=== PATIENT | female | born 1945 | race Asian ===

== ENCOUNTER 2018-09-23 05:52 | Inpatient (IN) | payer OTHER ==
[2018-09-08 09:06] LABS: ABSOLUTE BASOPHILS 0.1 thou/uL (0.0-0.2); ABSOLUTE LYMPHOCYTES 1.8 thou/uL (0.8-5.3); ABSOLUTE MONOCYTES 0.4 thou/uL (0.0-1.2); ABSOLUTE NEUTROPHILS 7.6 thou/uL (1.6-8.1); BASOPHILS 0.8 %; EOSINOPHILS 0.2 %; HEMATOCRIT 39.7 % (37.0-47.0); HEMOGLOBIN 13.4 gm/dL (12.0-15.0); LYMPHOCYTES 17.8 %; MCH 28.1 pg (26.0-34.0); MCHC 33.6 g/dL (28.0-37.0); MCV 83.4 fL (80.0-100.0); MONOCYTES 4.4 %; MPV 8.5 fl. (7.2-11.1); NUCLEATED RBCS 0 /100WBC; PLATELET COUNT* 310 thou/uL (150-400); POLYS 76.8 %; RBC 4.76 mil/uL (4.20-5.00); RDW-CV 14.4 % (10.5-14.5); WBC 9.9 thou/uL (4.0-11.0)
[2018-09-08 09:15] LABS: APTT 26.9 Seconds (25.0-31.3); PROTIME 10.1 Seconds (9.20-11.50)
[2018-09-08 09:21] LABS: ALBUMIN 3.5 g/dL (3.4-5.0); CALCIUM 9.7 mg/dL (8.5-10.1); CREATININE 0.8 mg/dL (0.6-1.3); POTASSIUM 3.4 mmol/L (3.5-5.1); TOTAL BILIRUBIN 0.3 mg/dL (<0.1-1.0); TOTAL PROTEIN 9.1 g/dL (6.4-8.2)
[2018-09-08 10:07] LABS: ESR (SEDRATE) 30 mm/hr (0-30)
--- NOTE | 2018-09-08 17:06 | EKG ---
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
[~2018-09-23] VITALS: Ht 157.5 cm; Wt 79.4 kg
--- NOTE | ~2018-09-23 | OP ---
[address] [address] OPERATIVE REPORT Name: ROSALIND THOMAS Room: [address] IN M.R.#: [id number] Admission: 09/23/18 Attend Phys: Luca Alatorre Discharge: 09/27/18 Date of : 49 Report #: [id number] THIS REPORT FOR: //name// CC: Jd SONI Physician staff Barney Escobar DICTATED BY: Karl Miller DO DATE OF SERVICE: 09/23/2018 DIAGNOSES: 1. Left knee degenerative joint disease. 2. Rheumatoid arthritis. PROCEDURE: Left total knee arthroplasty. SURGEON: Jd Rust DO TEST ENG: Karl Miller DO SECOND TEST ENG: Morgan Mckinley DO ANESTHESIA: General, local and regional block. ESTIMATED BLOOD LOSS: 100 mL. SPECIMENS: None. DRAINS: None. COMPLICATIONS: None. CONDITION OF PATIENT: Stable to PACU. ORTHOPEDIC IMPLANTS: 1. Deann Persona size 6 left femur. 2. Deann Persona size D left tibia. 3. Deann Persona medial congruent polyethylene insert, 12 mm. 4. Deann Persona 29 mm all poly patella. 5. Two bags of Palacos bone cement. INDICATIONS FOR PROCEDURE: The patient is a pleasant 73-year-old female, who has had severe left knee pain for many years. She also has underlying rheumatoid arthritis. Radiographically, she has complete obliteration of the [facility] [address] [place] [address] OPERATIVE REPORT Name: ROSALIND THOMAS Room: [address] IN M.R.#: [id number] Admission: 09/23/18 Attend Phys: Luca Alatorre Discharge: 09/27/18 Date of : 49 Report #: [id number] joint space in all 3 compartments. She has failed conservative measures, continues to have pain that affect quality of life and inhibit her ability to carry out activities of daily living. It was recommended she be a candidate for left total knee arthroplasty. All risks, benefits, complications, indications and alternatives were reviewed and she wished to proceed. PROCEDURE DESCRIPTION: The patient was brought to the operative suite and placed supine on the operative table where she was given the benefits of general anesthesia. At this time, the left lower extremity was then sterilely prepped and draped in standard fashion. Timeout was taken to ensure correct patient, procedure, operative site, and the antibiotics were given, everybody in the room was in agreeance. At that time, a 20 blade scalpel was used to make an anterior skin incision through skin and subcutaneous tissue. A second 10 blade was used to perform medial parapatellar arthrotomy. Subperiosteal medial tibial sleeve was developed. Patella was everted. There was significant amount of degenerative change present with straw-colored synovial fluid consistent with her underlying diagnosis of rheumatoid arthritis as well as advanced degenerative change. At this time, osteophytes were removed with the rongeur. A drill was used to find intramedullary canal of the femur. A distal femoral cutting guide was placed in intramedullary canal of the femur, a 5-degree valgus cut was made, taken 12 mm resection due to her preoperative 5-degree flexion contracture. Once this resection was made, we then sized the femur to a size 6, pinned the cutting block in place, made anterior cuts followed by posterior cuts followed by our chamfer cuts. At this point, all bony debris was removed with a rongeur and a curved osteotome. We then went on to address the tibia. The extramedullary tibial guide was placed in line with medial third of the tibial tubercle down the tibial crest in line with the middle of the ankle at the appropriate slope. Once the tibial resection was made taking 10 mm off the high side, we then checked with a 10 block spacer and had equal varus valgus balance and adequate space in both in flexion and extension. We then irrigated the knee. We then sized our tibia to a size D, pinned it in place in the appropriate amount of external rotation, a trial of size 6 femur with a 12 mm poly; with this, we had full range of motion, excellent stability both throughout mid flexion as well as with varus valgus stress. We then ____ edge of the patella with a Bovie electrocautery, resurfaced the patella with a saw, drilled 3 peg holes, this was measured at 29 mm. Trial patella was taken through range of motion and found to have excellent patellar tracking. At this time, trial instruments were removed. Peg holes were drilled in the femur. Proximal tibia was drilled and punched. We then pulsatile lavaged the bone ends. Palacos cement was mixed at the back table. We then carried out cementing first with the tibia followed by the femur and patella and allowed the knee to sit in extension with a 12 mm trial insert while cement hardened. Once cement was hard, we irrigated the knee, removed the trial implant as well as any excess cement. We then placed a final 12 mm medial congruent articular insert. This was placed with the implant device and clicked into place. We then irrigated the wound once more, closed the capsule with a #1 Vicryl followed by a [address] [place] [address] OPERATIVE REPORT Name: ROSALIND THOMAS Room: [address]#: [id number] Admission: 09/23/18 Attend Phys: Luca Alatorre Discharge: 09/27/18 Date of : 49 Report #: [id number] running #1 Stratafix, subcutaneous were closed with a 2-0 Monocryl followed by running 3-0 Stratafix and Dermabond glue. Mepilex dressing and VIRGIL hose was applied. The patient awoke from anesthesia and brought to PACU in stable condition. By: [id number] luis Rust DO /mann
[~2018-09-23 05:52] MED LIST: ASPIRIN325 PO; PREDNISONE 5 MG5 MG PO
[2018-09-23 07:00] VITALS: BP 135/86
[2018-09-23 13:47] VITALS: BP 130/87
--- NOTE | 2018-09-23 14:20 | NUR ---
PT ADMITTED TO UNIT WITH LEFT KNEE REPLACEMENT. PT ALERT AND ORIENTED. PT IS ON 2LITERS O2 BY NASAL CANNULA. PULSES 2+ ALL EXTREMITIES. NO KNOWN DRUG ALLERGIES. PT HAS CLEAR LUNGS. BM TODAY, BOWEL SOUNDS ACTIVE. HAS NOT VOIDED POSTN OP AT THIS TIME. POLAR PACK TO KNEE. MEPILEX DRESSING WITHTED HOSE ON BILAT. FOOT SCD IN PLACE. PT WORKING WITH THERAPY TODAY TO SIT ON EDGE OF BED. WALKER AND GAIT BELT IN ROOM. PAIN MEDS GIVEN ORDERED. FALL RISK PRECAUTIONS IN PLACE. WILL CONTINUE TO MONITOR.
[2018-09-23 16:00] VITALS: BP 155/84
--- NOTE | 2018-09-23 16:53 | NUR ---
PT REMAINED ALERT AND ORIENTED. PT WORKED WITH THERAPY AND HAS VOIDED. PT X1 ASSIST TO COMMODE. WITH WALKER AND GAIT BELT. PAIN MEDS GIVEN ORDERED. POLAR PACK IN PLACE. HOURLY ROUNDING COMPLETED. WILL CONTINUE TO MONITOR.
[2018-09-23 19:30] VITALS: BP 131/71
[2018-09-24 00:30] VITALS: BP 131/73
[2018-09-24 03:35] VITALS: BP 136/72
[2018-09-24 04:27] LABS: HEMOGLOBIN 10.3 gm/dL (12.0-15.0)
--- NOTE | 2018-09-24 05:06 | NUR ---
PT REMAINED ALERT AND ORIENTED. VITALS, SpO2 STABLE THIS SHIFT. PT ON 2L OF O2 BY NC. MEDS, IV FLUID GIVEN ORDERED. PAIN CONTROLLED BY OXY IR AND DILAUDID. NO NAUSEA OR VOMITING. INCISION DRESSING CLEAN AND DRY. POLAR PACK, SCDS IN PLACE. PT EDUCATED ON INCENTIVE SPIROMETER AND DEMONSTRATED CORRECTLY. PT UP WITH 1 ASSIST TO COMMODE WITH WALKER AND GAIT BELT. HOURLY ROUNDING COMPLETED. WILL CONTINUE TO MONITOR.
[2018-09-24 07:30] VITALS: BP 146/68
[2018-09-24 12:00] VITALS: BP 140/69
[2018-09-24 16:00] VITALS: BP 118/67
--- NOTE | 2018-09-24 16:43 | NUR ---
PT REMAINED ALERT AND ORIENTED. PT PAIN UNCONTROLLED, ADMINISTERED DIFFERENT PAIN MEDS TO CATCH UP WITH PAIN. PT STATES THEY FEEL BETTER AND RATE PAIN 7/10. PT EDUCATED ON USING CALL LIGHT WHEN NEEDING PAIN MEDS. PT WORKED WITH THERAPY. CPM ORDERED AND USED THIS SHIFT. POLAR PACK IN PLACE. FALL RISK PRECAUTIONS IN PLACE. HOURLY ROUNDING COMPLETED. WILL CONTINUE TO MONITOR.
[2018-09-25 04:56] LABS: HEMATOCRIT 27.7 % (37.0-47.0); HEMOGLOBIN 9.3 gm/dL (12.0-15.0)
--- NOTE | 2018-09-25 05:35 | NUR ---
PATIENT ALERT AND ORIENTED X4. UP WITH GAIT BELT, WALKER AND 1 ASSIST TO BEDSIDE COMMODE. USING PO PAIN MEDICATION TO HELP WITH LEFT KNEE PAIN (REFUSED IV PAIN MEDICATION). DRESSING CLEAN DRY AND INTACT AND COVERED WITH POLAR PACK. CPM USED THIS SHIFT. FALL PRECAUTIONS IN PLACE. CALL LIGHT WITHIN REACH. PROGRESSING TOWARD DISCHARGE GOAL.
--- NOTE | 2018-09-25 05:44 | NUR ---
ALERT AND ORIENTED X4. ENCOURAGED TO USE CALL LIGHT TO ASK FOR ASSIST. CALL LIGHT WITHIN REACH. PATIENT NOT COMPLIANT WITH FALL PRECAUTIONS. PO PAIN MEDICATION HELPFUL WITH BACK PAIN. PATIENT RESTING QUIETLY THROUGHOUT NIGHT. RASH NOTED ON PATIENT'S BACK AND UPPER ARMS. PATIENT STATED HE HAD RASH PRIOR TO COMING INTO HOSPITAL. PATIENT STATED HE HAD RASH FOR AWHILE BUT UNSURE FOR HOW LONG. WILL PASS ON TO NEXT SHIFT. NO C/O N/V. WILL CONTINUE TO MONITOR.
[2018-09-25 07:13] VITALS: BP 114/57
[2018-09-25 15:44] VITALS: BP 132/69
[2018-09-25 16:36] LABS: ABSOLUTE BASOPHILS 0.1 thou/uL (0.0-0.2); ABSOLUTE EOSINOPHILS 0.1 thou/uL (0.0-0.7); ABSOLUTE LYMPHOCYTES 0.9 thou/uL (0.8-5.3); ABSOLUTE MONOCYTES 0.5 thou/uL (0.0-1.2); ABSOLUTE NEUTROPHILS 7.2 thou/uL (1.6-8.1); BASOPHILS 0.7 %; EOSINOPHILS 0.6 %; HEMATOCRIT 29.9 % (37.0-47.0); HEMOGLOBIN 9.8 gm/dL (12.0-15.0); LYMPHOCYTES 10.6 %; MCH 27.4 pg (26.0-34.0); MCHC 32.9 g/dL (28.0-37.0); MCV 83.2 fL (80.0-100.0); MONOCYTES 5.7 %; NUCLEATED RBCS 0 /100WBC; PLATELET COUNT* 226 thou/uL (150-400); POLYS 82.4 %; RBC 3.59 mil/uL (4.20-5.00); RDW-CV 13.7 % (10.5-14.5); WBC 8.7 thou/uL (4.0-11.0)
[2018-09-25 16:44] LABS: ALBUMIN 2.2 g/dL (3.4-5.0); CALCIUM 8.2 mg/dL (8.5-10.1); CREATININE 0.9 mg/dL (0.6-1.3); POTASSIUM 3.5 mmol/L (3.5-5.1); TOTAL BILIRUBIN 0.5 mg/dL (<0.1-1.0)
--- NOTE | 2018-09-25 17:10 | NUR ---
PT REMAINED ALERT AND ORIENTED. PT WORKED WITH THERAPY, DURING WALK IN [place] PT VOMITED. ZOFRAN GIVEN ORDERED. PT WILL NEED SKILLED, REHAB CONSULTED AND DENIED PT. LABS AND CHEST XRAY ORDERED, XRAY NEGATIVE AND NEGATIVE FOR SEPSIS SCREENING. PT THIS MORNING HAD TEMP OF 100.3, ENCOURAGED IS. TEMP WENT DOWN TO 98.7, PHYSICIAN NOTIFIED. PT USED CPM MACHINE ORDERED INCREASING RATE BY 5 WITH EACH SESSION. PAIN MEDS GIVEN ORDERED. PT RESTING IN ROOM. PT IS COLD AND SHAKY BUT STATES PAIN IS TOLOERABLE AT THIS TIME. FALL RISK PRECAUTIONS IN PLACE. HOURLY ROUNDING COMPLETED. WILL CONTINUE TO MONITOR.
[2018-09-25 17:47] LABS: ESR (SEDRATE) 97 mm/hr (0-30)
[2018-09-25 20:00] VITALS: BP 135/74
--- NOTE | 2018-09-26 06:49 | NUR ---
PT SLEPT WELL AFTER RECIEVING OXYCODONE AT HS LAST NIGHT. PT UP TO RESTROOM THIS AM THEN FELT NAUSEATED AFTER GETTING BACK TO BED. PT GIVEN PRN ZOFRAN. PT DENIED NEED FOR PAIN MEDICINE THIS AM. ORTHO RESIDENT ASSESED PT THIS AM. PT RESTING IN WITH POLAR PACK ON.
--- NOTE | 2018-09-26 10:49 | NUR ---
INITIAL ASSESSMENT: Pt evaluated for d/c planning needs. Reviewed chart and spoke with nurse and pt. Pt is alert and oriented. Pt lives in house with spouse and was independent with ADL's prior to admission to the hospital. Pt plans on going to sister's house on d/c from hospital. Pt has no DME and has not had home health in the past. Contacted [employer] to deliver walker prior to discharge. Pt has no preference for home health. Contacted [facility] and they are able to provide home health. No other needs identified.
[2018-09-26 11:02] VITALS: BP 135/74
[2018-09-26 14:10] VITALS: BP 110/50
--- NOTE | 2018-09-26 16:53 | NUR ---
AT 1410 PT CALLED OUT FOR PAIN MEDICATION AND STATED SHE WAS HAVING SOA AND CHEST PAIN. VSS AT THIS TIME WITH NO ELEVATED TEMP AND NO NEED FOR SUPPLEMENTAL OXYGEN (SEE CHART). PT WAS PROVIDED WITH PAIN MEDICATION AND PHYSICIAN NOTIFIED. CXR AND TROPONIN SERIES ORDERED AND EKG OBTAINED AFTER SPEAKING WITH THE PHYSICIAN. UPON OBTAINING RESULTS OF CXR AND TROPONIN DR GARCIA WAS NOTIFIED AND ASPIRIN WAS ORDERED SINCE THE PT CHEST PAIN WAS STILL 8-10/10 AND STILL HAD C/O SOA. CARDIOLOGY CONSULT PLACED AND HOUSE SUPERVISIOR NOTIFIED. DEYSI WITH CARDIOLOGY GAVE VERBAL ORDER TO TRANSFER PT TO TELE AND TO PLACE ORDERS FOR SL NITRO (ORDERS PLACED) DR FRANCO IN THE PT ROOM AND HE STATED TO HOLD THE SL NITRO AT THIS TIME AND CONTINUE TO MONITOR AND ASSESS ONCE ON TELE SINCE THERE WERE NO EKG CHANGES AT THIS TIME. PT TRANSFERRED TO TELE WHERE UPON OBTAINING VS IT WAS NOTED THAT SHE WAS SLIGHTLY TACHYCARDIC AND HAD AN ELEVATED TEMPERATURE. JOSH LISA WAS NOTIFIED OF THESE RESULTS AND THAT THE PT WAS NOW ST ON THE MONITOR AND O2 SAT WAS IN THE HIGH 80'S SO PT WAS PLACED ON 2L PER NC AT THIS TIME. WILL SIGN OFF AT THIS TIME.
[2018-09-26 18:00] LABS: URINE BLOOD 1+ (Negative); URINE CLARITY CLEAR; URINE COLOR YELLOW; URINE GLUCOSE-RANDOM NEGATIVE (Negative); URINE KETONES 1+ (Negative); URINE LEUKOCYTES NEGATIVE (Negative); URINE NITRITE NEGATIVE (Negative); URINE PROTEIN TRACE (Negative); URINE UROBILINOGEN 0.2 E.U./dl (0.2-1.0)
[2018-09-26 18:04] LABS: ICTOTEST (BILI CONFIRMATORY) Negative (Negative); URINE BILIRUBIN 1+ (Negative)
--- NOTE | 2018-09-26 18:07 | NUR ---
PT TRANSFERED AROUND 1600 PT IS ALERT AND ORIENTED X 4 PT HAS DISCOMFORT IN ABDOMEN CARDIOLOGY ORDERED TO HOLD NITRO PT DENIES SOA ON 2L/NC, PT IS UP WITH ASSIST X 1 TO BATHROOM, PT IS FEBRILE UPON ARRIVAL PAGED PHYSICIAN OBTAINED ORDER TO STRAIGHT CATH PT FOR UA AND SCHEDULED TYLENOL THIS NURSE STRAIGHT CATH PT FOR UA SENT TO LAB, PT IS SR ON THE MONITOR, WILL CONTINUE TO MONITOR
[2018-09-26 18:10] LABS: SQUAMOUS 0-3 Few /LPF (0-3)
[2018-09-26 18:11] LABS: AMORPHOUS URATES Few /LPF (None Seen); BACTERIA None Seen /HPF (None Seen); CASTS None Seen /LPF (None Seen); URINE RBC 0-2 Rare /HPF (0-2); URINE WBC None Seen /HPF (0-5)
[2018-09-26 18:33] LABS: HEMATOCRIT 25.7 % (37.0-47.0); HEMOGLOBIN 8.7 gm/dL (12.0-15.0); MCH 28.1 pg (26.0-34.0); MCHC 33.9 g/dL (28.0-37.0); MPV 8.9 fl. (7.2-11.1); NUCLEATED RBCS 0 /100WBC; PLATELET COUNT* 236 thou/uL (150-400); RDW-CV 13.7 % (10.5-14.5); WBC 9.2 thou/uL (4.0-11.0)
[2018-09-26 18:55] LABS: CALCIUM 8.2 mg/dL (8.5-10.1); CREATININE 0.9 mg/dL (0.6-1.3); POTASSIUM 3.7 mmol/L (3.5-5.1)
[2018-09-26 19:14] LABS: ABSOLUTE EOSINOPHILS 0.3 thou/uL (0.0-0.7); ABSOLUTE LYMPHOCYTES 0.3 thou/uL (0.8-5.3); ABSOLUTE MONOCYTES 0.3 thou/uL (0.0-1.2); ABSOLUTE NEUTROPHILS 8.4 thou/uL (1.6-8.1); PLATELET ESTIMATE ADEQUATE
[2018-09-26 20:00] VITALS: BP 91/52
[2018-09-27] VITALS: BP 88/53
--- NOTE | 2018-09-27 03:06 | NUR ---
RECIEVED REPORT AND ASSUMED CARE AT 1900. TECHNICAL SERVICE REP IN PLACE. BPS SOFT MAP STILL IN RANGE, OTHER THAN THAT VITAL SIGNS STABLE SLIGHT TEMP AT BEGINING OF SHIFT AND THEN NORMAL RANGE AFTER. PT UP WITH SBA WITH WALKER. POLAR PACK APPLIED DURING SHIFT. PT DENIES ANY PAIN AT THIS TIME. ASSESSMENT COMPLETED DISCUSSED PLAN OF CARE AND PT UNDERSTANDS. BED LOCKED AND CALL LIGHT WITHIN REACH. FALL PRECAUTIONS IN PLACE. HOURLY ROUNDING DONE AND ALL NEEDS MET. NURSING WILL CONTINUE TO MONITOR.
[2018-09-27 04:00] VITALS: BP 96/60
[2018-09-27 05:42] LABS: CHOLESTEROL 130 mg/dL (<200); HDL CHOLESTEROL 47 mg/dL (>40); LDL CHOLESTEROL 62 mg/dL (<100); TC:HDL 2.8 Ratio (Not establshd); TRIGLYCERIDE 107 mg/dL (<150); TROPONIN-I LEVEL <0.06 ng/mL (<0.06); VLDL 21 mg/dL (<40)
[2018-09-27 05:43] LABS: SERUM ASSESSMENT Clear
[2018-09-27 07:30] VITALS: BP 103/60
[2018-09-27] MEDS ORDERED: LEVAQUIN 750 M750 MG PO (09:38)
[2018-09-27] MEDS ORDERED: NORCO 5-325 TA1 EACH PO (10:07)
[2018-09-27] MEDS ORDERED: OXYCODONE HCL 55 MG PO (10:08)
[2018-09-27] MEDS ORDERED: ELIQUIS2.5 MG PO (10:09)
--- NOTE | 2018-09-27 10:46 | EKG ---
[place] [address] ELECTROCARDIOGRAM REPORT Name: ROSALIND THOMAS Room: [address] ADM IN M.R.#: [id number] Admission: 09/23/18 Attend Phys: Luca Alatorre Discharge: Date of : 49 Report #: [id number] THIS REPORT FOR: //name// 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
--- NOTE | 2018-09-27 10:52 | EKG ---
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
[2018-09-27] MEDS ORDERED: MIRALAX17 GM PO (13:27)
[2018-09-27] MEDS ORDERED: COLACE100 MG PO (13:30)
[2018-09-27 13:40] VITALS: BP 98/56
--- NOTE | 2018-09-27 14:56 | NUR ---
RECEIVED PT CARE 0700. SHE IS AWAKE/ALERT AND ORIENTED X4. VSS. LITIGATION DOCKET MANAGER TRACING SR. SHE IS UP WITH ASSIST X1 AND A WALKER. SHE DENIES ANY SOA. O2 SAT 95% ON ROOM AIR. UP AMBULATING IN [place] THIS MORNING WITH THERAPY. AM ASSESSMENT CHARTED. MEDS GIVEN PER MAR. DC ORDERS RECEIVED PER DR GARCIA. ORTHO AND CARDIOLOGY OK WITH DISCHARGE TO HOME TODAY. HOME HEALTH SETUP PER CASE MANAGEMENT. EDUCATED THE PATIENT ON HOME MEDICATIONS. NEW SCRIPTS GIVEN WITH MEDICATION INFORMATION SHEETS. IV DISCONTINUED AND LITIGATION DOCKET MANAGER REMOVED AND RETURNED TO NURSE'S DESK. CPM AND POLAR PACK SENT HOME WITH THE PATIENT. ALL HER BELONGINGS PACKED AND LEAVING WITH THE PATIENT. EDUCATED ON F/U APPOINTMENTS WITH HER PRIMARY AND TO F/U WITH ORTHOPEDICS. NO QUESTIONS OR CONCERNS AT TIME OF DISCHARGE. SHE IS LEAVINT VIA WHEELCHAIR ACCOMPANIED BY NURSING STAFF AND THE PATIENTS SISTER.
--- NOTE | 2018-09-27 14:56 | NUR ---
Pt discharged to home today, updated [facility]
--- NOTE | 2018-09-29 12:46 | CON ---
[address] [address] CONSULTATION Name: ROSALIND THOMAS Room: [address] IN M.R.#: [id number] Admission: 09/23/18 Attend Phys: Luca Alatorre Discharge: 09/27/18 Date of : 49 Report #: [id number] THIS REPORT FOR: //name// CC: Jd SONI Physician staff Barney Escobar DATE OF SERVICE: 09/26/2018 HISTORY OF PRESENT ILLNESS: The patient is a 73-year-old female who I was asked to see in the hospital today after she complained of chest pain. No old records available. The patient has a history of rheumatoid arthritis. Recently, she complained of left knee pain. She was electively admitted to [facility] on 09/23/2017 and underwent left total knee replacement. In the last couple of days, she has done well, although she notes yesterday, she vomited. Today, she has not felt well. She complains of sharp pain in her chest. She felt somewhat short of breath. She denied fever, cough, pain in her calves. She did eat breakfast today. She is not very active because of rheumatoid arthritis, but denies history of chest pain in the past, shortness of breath or palpitations. PAST MEDICAL HISTORY: She has had no major surgical procedures. There is no history of hypertension, diabetes. She has a history of rheumatoid arthritis. She has seen a child care centre manager in the past. ALLERGIES: She has no known drug allergies. FAMILY HISTORY: Negative for heart disease. SOCIAL HISTORY: She is originally from [facility]. She moved to [place], [place] years ago. 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 No smoking or alcohol abuse. REVIEW OF SYSTEMS: She has had no history of stroke, asthma, peptic ulcer disease, liver disease, kidney disease, cancer, psychiatric illness, chronic skin condition. PHYSICAL EXAMINATION: GENERAL: Revealed an elderly female who appeared in mild distress secondary to pain. VITAL SIGNS: She had a blood pressure of 130/70, pulse 90. She is afebrile. HEENT: She was anicteric, conjunctiva pink. Mucous membranes moist. NECK: Veins do not appear distended. No carotid bruits. Neck was supple. CHEST: Clear to auscultation. CARDIAC: Regular [place] [address] CONSULTATION Name: ROSALIND THOMAS Room: [address]#: [id number] Admission: 09/23/18 Attend Phys: Luca Alatorre Discharge: 09/27/18 Date of : 49 Report #: [id number] ABDOMEN: Soft. EXTREMITIES: No Homans sign. Dorsalis pedis pulse on the right was 2+. SKIN: Warm and dry. NEUROLOGIC: Nonfocal. DIAGNOSTIC DATA: ECG done during the episode of chest pain showed normal sinus rhythm. There was no ST or T-wave change noted. Her chest x-ray done today shows normal heart size, mild infiltrates noted. LABORATORY DATA: Sodium 134, creatinine 0.9. Liver function studies were normal. Troponin today is 0.13. Her white blood cell count 8.7, hemoglobin yesterday was 9.8, hematocrit 29.9, MCV 83. IMPRESSION AND RECOMMENDATIONS: 1. Chest pain, atypical for angina. The patient has minimal risk factors for coronary artery disease. In light of the fact there is no ECG changes noted with atypical chest pain, I suspect her chest pain is noncardiac. The pain is more suggestive of a gastrointestinal source. There are no other findings to suggest pulmonary embolus. 2. Status post left knee replacement. 3. History of rheumatoid arthritis. <ELECTRONICALLY SIGNED> By: Chema Singletary MD, FACC 09/29/18 1246 1558 [id number] Singeltary MD, FACC /nt
== END 2018-09-27 14:14 | disposition home health service (06) | DRG 469 ==
LOC: M.SUR 05:52 → M.PRE 07:00 → EDSTATUS 10:11 → M.SUR 10:20 → M.PRE 11:25 → M.2W 11:53 → M.ORTHSURG 11:53 → M.TBA 11:53 → M.ORTHSURG 11:54 → M.SUR 12:13 → M.PRE 12:16 → M.SUR 13:32 → M.PRE 13:32 → M.2W 09-26 16:01
PROVIDERS: Family Medicine; Internal Medicine; Internal Medicine Cardiovascular Disease; Orthopaedic Surgery; ADMIT Internal Medicine
PROC: 0SRD0J9 Replacement of Left Knee Joint with Synthetic Substitute, Cemented, Open Approach (ICD-10-PCS; principal; 2018-09-23)
DX: M17.12 Unilateral primary osteoarthritis, left knee (principal); J15.6 Pneumonia due to other Gram-negative bacteria; E43 Unspecified severe protein-calorie malnutrition; D62 Acute posthemorrhagic anemia; R07.89 Other chest pain; M06.9 Rheumatoid arthritis, unspecified; Z79.52 Long term (current) use of systemic steroids; Z98.891 History of uterine scar from previous surgery

== ENCOUNTER 2019-01-13 06:03 | Inpatient (IN) | payer OTHER ==
[2018-12-29 14:14] LABS: ABSOLUTE BASOPHILS 0.1 thou/uL (0.0-0.2); ABSOLUTE LYMPHOCYTES 1.2 thou/uL (0.8-5.3); ABSOLUTE MONOCYTES 0.2 thou/uL (0.0-1.2); ABSOLUTE NEUTROPHILS 8.2 thou/uL (1.6-8.1); BASOPHILS 0.9 %; EOSINOPHILS 0.2 %; HEMATOCRIT 35.1 % (37.0-47.0); HEMOGLOBIN 11.6 gm/dL (12.0-15.0); LYMPHOCYTES 12.4 %; MCH 25.5 pg (26.0-34.0); MCHC 33.1 g/dL (28.0-37.0); MCV 77.1 fL (80.0-100.0); MONOCYTES 2.1 %; MPV 8.3 fl. (7.2-11.1); NUCLEATED RBCS 0 /100WBC; PLATELET COUNT* 331 thou/uL (150-400); POLYS 84.4 %; RBC 4.55 mil/uL (4.20-5.00); RDW-CV 16.5 % (10.5-14.5); WBC 9.8 thou/uL (4.0-11.0)
[2018-12-29 14:28] LABS: ALBUMIN 3.3 g/dL (3.4-5.0); CALCIUM 9.7 mg/dL (8.5-10.1); POTASSIUM 3.7 mmol/L (3.5-5.1); TOTAL BILIRUBIN 0.3 mg/dL (<0.1-1.0); TOTAL PROTEIN 10.8 g/dL (6.4-8.2)
[2018-12-29 14:29] LABS: APTT 26.2 Seconds (25.0-31.3); PROTIME 10.5 Seconds (9.20-11.50)
[2018-12-29 15:36] LABS: ESR (SEDRATE) 93 mm/hr (0-30)
[~2019-01-13] VITALS: Ht 157.5 cm; Wt 65.8 kg
--- NOTE | ~2019-01-13 | OP ---
[address] [address] OPERATIVE REPORT Name: ROSALIND THOMAS Room: [address] M.R.#: [id number] Admission: 01/13/19 Attend Phys: Luca Alatorre Discharge: Date of : 49 Report #: [id number] THIS REPORT FOR: //name// CC: ABDIFATAH SONI Physician staff Barney Escobar DICTATED BY: Wilfrido Post DO DATE OF SERVICE: 01/13/2019 PREOPERATIVE DIAGNOSIS: Right knee advanced degenerative joint disease. POSTOPERATIVE DIAGNOSIS: Right knee advanced degenerative joint disease. PROCEDURE PERFORMED: Right total knee arthroplasty. SURGEON: Jd Rust DO LOAN OFFICER: Wilfrido Post DO SECOND LOAN OFFICER: Rohan Collins DO ANESTHESIA: General with peripheral nerve block by Anesthesia and a local capsular block intraoperatively. ESTIMATED BLOOD LOSS: 75 mL. COMPLICATIONS: None. CONDITION: The patient is stable. DISPOSITION: To PACU. ORTHOPEDIC IMPLANTS: The Deann Persona right total knee system was utilized with the following components: 1. Size 6 CR femoral component. 2. Size D tibial tray. 3. A 10-mm medial congruent polyethylene insert. 4. A 29-mm All-Poly patella. 5. Two bags of Palacos bone cement with vancomycin. INDICATIONS FOR PROCEDURE: The patient is a pleasant 73-year-old female who has been followed in the outpatient orthopedic clinic with longstanding right knee pain. Physical exam and radiographs have demonstrated advanced degenerative joint disease of the right knee. She has previously failed conservative care [facility] [address] [place] [address] OPERATIVE REPORT Name: ROSALIND THOMAS Room: [address] .R.#: [id number] Admission: 01/13/19 Attend Phys: Luca Alatorre Discharge: Date of : 49 Report #: [id number] including intraarticular corticosteroid injections, NSAIDs, activity modifications, and home exercises. She has had continued symptoms and we have discussed surgical intervention with right total knee arthroplasty. Risks, benefits, complications, and alternatives of the procedure were discussed with the patient in detail. Risks include but not limited to blood loss, infection, damage to neurovascular structures, continued pain, need for repeat surgery, hardware failure, and complications with anesthesia. The patient expressed understanding and wished to proceed. DESCRIPTION OF PROCEDURE: The patient was transferred to the operating suite and placed on the operating table in supine position. She was given the benefit of general anesthesia. A well-padded pneumatic tourniquet was placed on the right proximal thigh. The right lower extremity was then prepped and draped in the usual sterile fashion. A timeout was taken to confirm the appropriate patient identification, operative site and procedure to be performed. All in the room were in agreement with the timeout. The procedure began by performing a midline incision on the anterior aspect of the knee. Sharp dissection was carried down to the level of the quadriceps tendon and the joint capsule. A fresh scalpel blade was then used to incise a medial parapatellar arthrotomy. The knee was flexed. Infrapatellar fat pad was partially excised. Retractors were placed. Intramedullary drill was then used at the distal femur to gain access to the medullary canal. The intramedullary guide was then inserted. The medullary guide was set to resect 12 mm of bone in 6 degrees of valgus. The cutting guide was then pinned into place and the distal femoral cut was performed through the cutting guide. The AP sizer was then used to measure the distal aspect of the femur. 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 The drill holes were then drilled in 5 degrees of external rotation relative to the posterior condylar axis and perpendicular to Whitesides line. The 4-in-1 cutting block was then malleted and pinned into place. Anterior, posterior, and chamfer cuts were then performed through the 4-in-1 cutting block. Attention was then addressed to the tibia. The extramedullary guide was applied, set to resect 10 mm off the high lateral side. Alignment was obtained by referencing the medial third of the tubercle, the tibial crest, and the middle of the talus. The cutting block was then pinned into place. The proximal tibial cut was then performed through the cutting block. Retractors were used to protect vital structures. Excess bone was then removed. Extension block was checked using a 10 mm extension block. This demonstrated full extension with good balance and balanced to varus and valgus. The knee was then flexed again. Excess menisci, as well as anterior and posterior cruciate ligaments were excised. The tibia was then sized using the tibial tray, which was appropriate to a size D. This was pinned into place. The trial femoral component was then malleted into place. A trial medial congruent to 10 mm insert was inserted. The knee was taken through range of motion and found to be [facility] [address] [place] [address] OPERATIVE REPORT Name: ROSALIND THOMAS Room: [address] Elli.#: [id number] Admission: 01/13/19 Attend Phys: Luca Alatorre Discharge: Date of : 49 Report #: [id number] very stable to varus and valgus stress, demonstrated good anterior drawer test at 90 degrees of flexion. There was good stability in mid flexion as well. The patella was everted and cut in a freehand fashion. Patellar peg holes were drilled. The trial 29 mm patella was placed and the knee was again taken through range of motion. The patella was noted to track well. It should be noted that during all of her bony cuts and resection, the patient was noted to have very osteoporotic bone. The trial components were then removed and the tibia was drilled and punched through the tibial tray. The knee was then irrigated with pulsatile lavage. The Palacos cement was mixed on the back table. Cement was then applied to the back surfaces of our implants, as well as the cut surfaces of the bone. Final implants were malleted into place including a 10 mm medial congruent polyethylene insert. The knee was again checked for stability and was noted to be appropriate in extension, mid flexion, and full flexion. It was well balanced to varus and valgus and anterior drawer. Cement was allowed to harden. Closure then began by using #1 Vicryl in a [id number] fashion to begin capsular closure. The capsule was then fully closed using a running #2 Stratafix. Subcutaneous tissue was closed using 2-0 Vicryl in inverted interrupted fashion. Final skin closure was performed with a running 3-0 Stratafix and skin glue. Sterile dressings were applied. Needle and sponge counts at the end of the procedure were correct x 2. The patient was transferred to PACU in stable condition. ATTESTATION: Dr. Rust was present and scrubbed in through the entirety of the procedure. By: [id number] Desean Rust DO /nt
[~2019-01-13 06:03] MED LIST changes: +COLACE100 MG PO; +ELIQUIS2.5 MG PO; +LEVAQUIN 750 M750 MG PO; +MIRALAX17 GM PO; +NORCO 5-325 TA1 EACH PO; +OXYCODONE HCL 55 MG PO
[2019-01-13 06:38] VITALS: BP 138/89
[2019-01-13 10:50] VITALS: BP 137/73
[2019-01-13 15:49] VITALS: BP 137/78
[2019-01-13 20:00] VITALS: BP 130/67
[2019-01-14] VITALS: BP 126/66
[2019-01-14 04:00] VITALS: BP 133/61
[2019-01-14 04:22] LABS: HEMATOCRIT 27.9 % (37.0-47.0)
[2019-01-14 08:05] VITALS: BP 144/70
[2019-01-14 16:00] VITALS: BP 149/71
[2019-01-14 20:00] VITALS: BP 134/98
[2019-01-15 04:43] LABS: HEMATOCRIT 29.1 % (37.0-47.0); HEMOGLOBIN 9.6 gm/dL (12.0-15.0)
[2019-01-15 16:30] VITALS: BP 144/84
[2019-01-15 20:10] VITALS: BP 134/69
[2019-01-16] VITALS: BP 137/65
[2019-01-16 04:00] VITALS: BP 136/62
[2019-01-16 07:30] VITALS: BP 122/76
[2019-01-16] MEDS ORDERED: TRAMADOL 50 MG50 MG PO (09:42)
[2019-01-16] MEDS ORDERED: NORCO 5-325 TA1 EAC1 PO (09:42)
[2019-01-16] MEDS ORDERED: ELIQUIS2.5 MG PO (09:43)
[2019-01-16] MEDS ORDERED: ASPIRIN EC325 M1 PO (09:44)
[2019-01-16 09:46] VITALS: BP 122/76
[2019-01-16 12:59] VITALS: BP 122/76
[2019-01-16 14:30] VITALS: BP 122/76
== END 2019-01-16 14:31 | disposition home health service (06) | DRG 470 ==
LOC: M.SUR 06:03 → M.TBA 09:37 → M.ORTHSURG 09:37 → M.SUR 10:13 → M.ORTHSURG 10:33 → M.SUR 10:37 → M.ORTHSURG 01-16 14:31
PROVIDERS: Orthopaedic Surgery; ADMIT Internal Medicine
PROC: 0SRC0J9 Replacement of Right Knee Joint with Synthetic Substitute, Cemented, Open Approach (ICD-10-PCS; principal; 2019-01-13)
DX: M17.11 Unilateral primary osteoarthritis, right knee (principal); D62 Acute posthemorrhagic anemia; Z96.652 Presence of left artificial knee joint; Z98.891 History of uterine scar from previous surgery